=== PATIENT | male | born 1985 | race Hispanic/Latino ===

== ENCOUNTER → 2018-04-08 07:37 | Outpatient (CLI) | payer OTHER, SELFPAY ==
--- NOTE | 2018-04-08 | DI.MRI.S_ITS ---
PROCEDURE: MR KNEE RT WO CON INDICATIONS: PATELLAR TENDINITIS RIGHT KNEE TECHNIQUE: Noncontrast sagittal PD fast spin echo and T2 fast spin echo with fat saturation, sagittal 3-D FLASH with fat saturation; coronal T1 spin echo and PD fast spin echo with fat saturation, and axial PD fast spin echo with fat saturation through the knee. COMPARISON: None. FINDINGS: Image quality: Excellent. Menisci: The medial and lateral menisci demonstrate normal morphology and internal signal. The meniscal root ligaments appear intact. Cruciate ligaments: The anterior and posterior cruciate ligaments appear intact. Moderate T2 signal elevation along the course of the anterior cruciate ligament is present. Medial structures: The medial collateral ligament appears intact. Visualized portions of the pes anserinus tendons appear normal. No abnormal bursal fluid. Lateral structures: The lateral collateral ligament, long and short heads of the biceps femoris tendon appear intact. The popliteus tendon appears normal. Iliotibial band appears normal. Anterior structures: The quadriceps tendon is intact. There is moderate fluid signal intensity within the patellar tendon at the patellar insertion site.. There is mild lateral patellar subluxation. No femoral trochlear dysplasia or ventral trochlear prominence. There is mild edema within the anterosuperior aspect of the infrapatellar fat pad. Bones and cartilage: No bone marrow contusions or fractures. The cartilage of the medial and lateral femorotibial compartments, as well as the patellofemoral compartment, appears normal in thickness. Joint space: There is physiologic knee joint fluid. No Buckley's cyst. Normal appearing synovial plicae are incidentally noted. IMPRESSION: 1. Patellar tendinitis with moderate grade partial-thickness patellar tendon tear. 2. Myxoid degeneration of the anterior cruciate ligament. Dictated by: Mamie Cantor M.D. on 04/08/2018 at 8:58 Approved by: Mamie Cantor M.D. on 04/08/2018 at 9:00
== END ==
PROVIDERS: Visit Provider Radiology Diagnostic Radiology
DX: M76.51 Patellar tendinitis, right knee (principal); S76.111A Strain of right quadriceps muscle, fascia and tendon, initial encounter
CPT/HCPCS: 73721